=== PATIENT | female | born 1990 | race Caucasian/White ===

== ENCOUNTER 2018-11-25 10:41 | Inpatient (IN) | payer OTHER ==
[~2018-11-25] VITALS: Ht 152.4 cm; Wt 68.9 kg
== END 2018-11-27 13:59 | disposition home or self-care (01) | DRG 833 ==
LOC: LDR 10:41
PROVIDERS: ADMIT Specialist
PROC: 4A1HXCZ Monitoring of Products of Conception, Cardiac Rate, External Approach (ICD-10-PCS; principal; 2018-11-25)
DX: O13.3 Gestational [pregnancy-induced] hypertension without significant proteinuria, third trimester (principal); Z34.83 Encounter for supervision of other normal pregnancy, third trimester

== ENCOUNTER 2018-12-03 15:25 | Inpatient (IN) | payer OTHER ==
[~2018-12-03] VITALS: Ht 152.4 cm; Wt 69.4 kg
[2018-12-03] MEDS ORDERED: PRENATAL TABLE1 EAC1 PO (17:21)
== END 2018-12-06 10:23 | disposition home or self-care (01) | DRG 833 ==
LOC: LDR 15:25 → OB/GYN 15:25
PROVIDERS: ADMIT Specialist
PROC: BY4FZZZ Ultrasonography of Third Trimester, Single Fetus (ICD-10-PCS; principal; 2018-12-03)
PROC: 4A1HXCZ Monitoring of Products of Conception, Cardiac Rate, External Approach (ICD-10-PCS; 2018-12-03)
DX: O13.3 Gestational [pregnancy-induced] hypertension without significant proteinuria, third trimester (principal); O47.00 False labor before 37 completed weeks of gestation, unspecified trimester; O24.410 Gestational diabetes mellitus in pregnancy, diet controlled; Z34.83 Encounter for supervision of other normal pregnancy, third trimester

== ENCOUNTER 2019-01-06 16:39 | Inpatient (IN) | payer OTHER ==
[~2019-01-06] VITALS: Ht 152.4 cm; Wt 73.0 kg
== END 2019-01-09 12:54 | disposition home or self-care (01) | DRG 788 ==
LOC: OB/GYN 16:39 → LDR 16:39 → OB/GYN 01-07 10:24
PROVIDERS: ADMIT Specialist
PROC: 4A1HXCZ Monitoring of Products of Conception, Cardiac Rate, External Approach (ICD-10-PCS; 2019-01-06)
PROC: 10D00Z1 Extraction of Products of Conception, Low, Open Approach (ICD-10-PCS; principal; 2019-01-06 18:00)
DX: O82 Encounter for cesarean delivery without indication (principal); O13.4 Gestational [pregnancy-induced] hypertension without significant proteinuria, complicating childbirth; Z3A.37 37 weeks gestation of pregnancy; Z37.0 Single live birth

== ENCOUNTER → 2019-01-06 | Outpatient (CLI) | payer OTHER ==
[~2019-01-06] MED LIST: PRENATAL TABLE1 EAC1 PO
== END | disposition home or self-care (01) ==
LOC: PRENATAL 14:41
DX: O24.410 Gestational diabetes mellitus in pregnancy, diet controlled (principal); O13.2 Gestational [pregnancy-induced] hypertension without significant proteinuria, second trimester

== ENCOUNTER 2020-12-17 04:50 | Day surgery (SDC) | payer OTHER | END 2020-12-17 21:30 | disposition home or self-care (01) | LOC: CIR.AMB 04:50 | PROVIDERS: ATTEND Obstetrics & Gynecology | DX: N70.11 Chronic salpingitis (principal); Z20.822 Contact with and (suspected) exposure to COVID-19 ==